=== PATIENT | male | born 1950 | race Caucasian/White ===

== ENCOUNTER → 2016-05-23 | Outpatient (CLI) | payer BC | LOC: MW.CHFP 11:14 | PROVIDERS: ATTEND Family Medicine | DX: Z01.818 Encounter for other preprocedural examination (principal); E11.9 Type 2 diabetes mellitus without complications; I10 Essential (primary) hypertension; M95.0 Acquired deformity of nose | CPT/HCPCS: 36415; 85025; 93005 ==

== ENCOUNTER 2016-05-31 07:22 | Day surgery (SDC) | payer BC ==
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
[~2016-05-31 07:22] MED LIST: Lactated Ringers 1,000 ML IV SCH
--- NOTE | 2016-05-31 07:57 | PCM.PREANE ---
Preanesthetic Assessment - Anesthesia/Transfusion/Family Hx Anesthesia History: No Prior Anesthesia Transfusion History: No Prior Transfusion(s) - Physical Assessment Height: 1.85 m Weight: 129.727 kg - Allergies Allergies/Adverse Reactions: Allergies Allergy/AdvReac Type Severity Reaction Status Date / Time No Known Allergies Allergy Verified 08/18/13 08:09 PreAnesthesia Questionnaire HEENT History: Reports: Other (see below) Other HEENT History: wears glasses, top denture Cardiovascular History: Reports: High cholesterol, Hypertension Musculoskeletal History: Reports: Osteoarthritis Endocrine/Metabolic History: Reports: Diabetes, type II, Obesity/BMI 30+ - Past Surgical History Head Surgeries/Procedures: Reports: None - SUBSTANCE USE Smoking Status *Q: Former Smoker (quit smoking 22 years ago) Tobacco Use Within Last Twelve Months: No Recreational Drug Use History: No - HOME MEDS Home Medications: Home Meds Lisinopril 20 mg PO DAILY 05/29/16 [History] Rosuvastatin [Crestor] 20 mg PO DAILY 05/29/16 [History] metFORMIN HCl [Metformin HCl] 500 mg PO DAILY 05/29/16 [History] - CURRENT (IN HOUSE) MEDS Current Meds: Current Medications Lactated Ringer's (Ringers, Lactated) 1,000 mls @ 100 mls/hr IV ASDIRECTED [facility] Preanesthetic Assessment - ANESTHESIA/TRANSFUSION/FAMILY HX Anesthesia/Transfusion History: Prior Anesthesia Type of Anesthesia Reaction: Denies: Allergy, Anesthesia Awareness, Excessive Somnolence, Excessive Nausea/Vomiting, Excessive Itching, Excessive Shivering, Malignant Hyperthermia, Malignant Hyperthermia, Family History, Pseudocholinesterase Deficiency, Pseudocholinesterase Deficiency, Family History of, Urinary Retention, Unknown, Other (see below) Family History of Anesthesia Reaction: No Other Intubation History Comment: no previous surgeries - REVIEW OF SYSTEMS Constitutional: Reports: no symptoms 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 Respiratory: Reports: no symptoms Cardiovascular: Reports: no symptoms GI: Reports: no symptoms Other: Reports: None - PHYSICAL ASSESSMENT Height: 1.85 m Weight: 129.727 kg ASA Class: 3 Mental Status: Alert & Oriented x3 Airway Class: Mallampati = 2 Dentition: Reports: Dentures (upper) Thyro-Mental Finger Breadths: 2 Mouth Opening Finger Breadths: 3 ROM/Head Extension: Limited/Partial Respiratory Status: lungs clear to auscultation bilaterally Cardiovascular Status: regular rate & rhythm, normal S1, S2, no murmur, blood pressure WNL - ALLERGIES Allergies/Adverse Reactions: Allergies Allergy/AdvReac Type Severity Reaction Status Date / Time No Known Allergies Allergy Verified 08/18/13 08:09 - BLOOD Blood Available: No - ANESTHESIA PLAN Preop Beta Renita: No Anesthesia Type Planned: General Anesthesia - ACKNOWLEDGEMENTS Pt an Appropriate Candidate for the Planned Anesthesia: Yes Alternatives and Risks of Anesthesia Discussed w Pt/Guardian: Yes Pt/Guardian Understands and Agrees with Anesthesia Plan: Yes
--- NOTE | 2016-05-31 08:01 | PCM.HPR ---
H & P Addendum review - H & P Addendum Review Date of Original H & P: 05/24/16 Date Reviewed: 05/31/16 Time Reviewed: 08:00 Patient was examined: No Changes (Has had a pre op clearance and formal H&P last week by his PCP; one ENT changes)
[2016-05-31] MEDS ORDERED: Dextrose 5% in Water 500 ML IV SCH (08:15)
[2016-05-31] MEDS ORDERED: Lidocaine 2% 5 ML SDV ONE (08:46)
[2016-05-31] MEDS ORDERED: Propofol 200 MG/20 ML SDV ONE ×2 (08:46→09:59)
[2016-05-31] MEDS ORDERED: Midazolam 1 MG/ML 2 ML SDV ONE (08:46)
[2016-05-31] MEDS ORDERED: fentaNYL 250 MCG/5 ML SDV ONE (08:47)
[2016-05-31] MEDS ORDERED: Ondansetron 4 MG/2 ML SDV ONE (08:48)
[2016-05-31] MEDS ORDERED: Rocuronium 10 MG/ML 10 ML Syringe ONE (08:48)
[2016-05-31] MEDS ORDERED: Neostigmine Methylsulfate 1 MG/ML 5 ML Syringe IV ONE (08:51)
[2016-05-31] MEDS ORDERED: Oxymetazoline 0.05% Nasal Spray 15 ML Bottle ONE (09:26)
[2016-05-31] MEDS ORDERED: Labetalol 5 MG/ML 5 ML Syringe ONE (09:27)
[2016-05-31] MEDS ORDERED: Phenylephrine 1% 10 MG/ML SDV ONE (09:39)
[2016-05-31] MEDS ORDERED: Phenylephrine/Normal Saline 100 MCG/ML 10 ML Syringe ONE (09:39)
[2016-05-31] MEDS ORDERED: Lidocaine 2% with EPINEPHrine 1:100,000 20 ML MDV ONE (09:54)
[2016-05-31] MEDS ORDERED: fentaNYL 100 MCG/2 ML SDV IVPUSH PRN (10:41)
[2016-05-31] MEDS ORDERED: Acetaminophen 325 MG Tab PO PRN (11:26)
[2016-05-31] MEDS ORDERED: Ibuprofen 400 MG Tab PO PRN (11:26)
[2016-05-31] MEDS ORDERED: traMADol 50 MG Tab PO PRN (11:27)
[2016-05-31 14:33] VITALS: BP 136/79
== END 2016-05-31 13:28 | disposition home or self-care (01) ==
LOC: MW.SDS 07:22
PROVIDERS: ATTEND Otolaryngology
DX: J34.2 Deviated nasal septum (principal); J34.89 Other specified disorders of nose and nasal sinuses; I10 Essential (primary) hypertension; E78.00 Pure hypercholesterolemia, unspecified; E53.8 Deficiency of other specified B group vitamins; Z79.899 Other long term (current) drug therapy; E11.9 Type 2 diabetes mellitus without complications; Z79.84 Long term (current) use of oral hypoglycemic drugs; Z87.891 Personal history of nicotine dependence
CPT/HCPCS: 30520; 82962; A9270; J2250; J2370; J2405; J3010; J7060; J7120; 00160; J2704

== ENCOUNTER → 2016-06-12 | Outpatient (CLI) | payer BC ==
[2016-06-12 08:58] LABS: CHLORIDE,CL 109 mmol/L (98-110); SODIUM,NA 143 mmol/L (136-146)
== END | disposition home or self-care (01) ==
LOC: MW.CHRC 08:00
PROVIDERS: ATTEND Family Medicine
DX: I10 Essential (primary) hypertension (principal); E78.00 Pure hypercholesterolemia, unspecified; E11.9 Type 2 diabetes mellitus without complications
CPT/HCPCS: 36415; 80053; 80061; 82044; 83036

== ENCOUNTER 2017-07-15 08:50 | Emergency (ER) | payer MEDICARE, BC ==
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
[2017-07-15 10:39] VITALS: BP 166/88
--- NOTE | 2017-07-16 15:18 | CR ---
EXAM DATE: 07/15/17 PATIENT'S AGE: 67 Patient: SCAR MIRELES Facility: [place], [place] Site . Site : 1950 Study: XRay Knee Right [id number]/29/2018 9:49:48 AM Ordering Physician: Doctor Ross Final Report: INDICATION: Knee pain. TECHNIQUE: Three views right knee. COMPARISON: None FINDINGS: No acute fracture. No dislocation. Mild chondrocalcinosis noted in the lateral compartment. Medial and lateral compartment joint space height is preserved. There is mild patellofemoral joint degenerative change. Superior pole patellar enthesophyte noted. No significant suprapatellar joint effusion. IMPRESSION: No acute osseous abnormality. Dictated by Barrett Monsivais MD @ 07/15/2017 10:07:43 AM Dictated by: Barrett Monsivais MD @ 07/15/2017 10:07:51 (Electronic Signature) Report Signed by Proxy. VIKRAM
== END 2017-07-15 10:43 | disposition home or self-care (01) ==
LOC: MW.ED 08:50
DX: M25.561 Pain in right knee (principal); E78.00 Pure hypercholesterolemia, unspecified; I10 Essential (primary) hypertension; E11.9 Type 2 diabetes mellitus without complications; Z79.899 Other long term (current) drug therapy; Z79.84 Long term (current) use of oral hypoglycemic drugs; Z87.891 Personal history of nicotine dependence
CPT/HCPCS: 36415; 73562-26-RT; 73562-RT; 84550; 85025; 86140; 99283

== ENCOUNTER 2017-08-29 08:13 | Day surgery (SDC) | payer MEDICARE, OTHER ==
[~2017-08-29 08:13] MED LIST changes: +Acetaminophen/HYDROcodone 325-5 MG Tab PO PRN; +Lidocaine 1% 20 ML MDV ONE; +Midazolam 1 MG/ML 2 ML SDV ONE; +Ondansetron 4 MG/2 ML SDV ONE; +Propofol 200 MG/20 ML SDV ONE; +ceFAZolin 2 GM in Premix Bag 1 BAG IV SCH; +fentaNYL 250 MCG/5 ML SDV ONE
[2017-08-29] MEDS ORDERED: ceFAZolin/Dextrose,Iso-Osmotic 2 GM/50 ML Duplex Bag IV ONE ×2 (08:33→09:54)
--- NOTE | 2017-08-29 08:47 | PCM.PREANE ---
Preanesthetic Assessment - Anesthesia/Transfusion/Family Hx Anesthesia History: Prior Anesthesia Without Reaction Family History of Anesthesia Reaction: No Transfusion History: No Prior Transfusion(s) - Review of Systems General: No Symptoms Pulmonary: No Symptoms Cardiovascular: No Symptoms Gastrointestinal: No Symptoms Neurological: No Symptoms Other: Reports: None - Physical Assessment NPO Status Date: 08/28/17 Height: 1.85 m Weight: 105.687 kg ASA Class: 2 Mental Status: Alert & Oriented x3 Airway Class: Mallampati = 1 Dentition: Reports: Dentures (upper) ROM/Head Extension: Full Lungs: Clear to Auscultation, Normal Respiratory Effort Cardiovascular: Regular Rate, Regular Rhythm - Lab Values: Laboratory Last Values POC Glucose 129 mg/dL (60-110) H 08/29/17 08:33 - Allergies Allergies/Adverse Reactions: Allergies Allergy/AdvReac Type Severity Reaction Status Date / Time No Known Allergies Allergy Verified 08/24/17 10:56 - Acknowledgements Anesthesia Type Planned: General Anesthesia Pt an Appropriate Candidate for the Planned Anesthesia: Yes Alternatives and Risks of Anesthesia Discussed w Pt/Guardian: Yes Pt/Guardian Understands and Agrees with Anesthesia Plan: Yes Additional Comments: PMH: htn, DM2, hld PreAnesthesia Questionnaire HEENT History: Reports: Other (See Below) Other HEENT History: wears glasses and has upper denture Cardiovascular History: Reports: High Cholesterol, Hypertension Musculoskeletal History: Reports: Osteoarthritis Endocrine/Metabolic History: Reports: Diabetes, Type II - Past Surgical History Head Surgeries/Procedures: Reports: None HEENT Surgical History: Reports: Naso-Sinus Surgery Other HEENT Surgeries/Procedures: Septoplasty - SUBSTANCE USE Smoking Status *Q: Former Smoker Tobacco Use Within Last Twelve Months: No Recreational Drug Use History: No - HOME MEDS Home Medications: Home Meds Lisinopril 20 mg PO DAILY 05/29/16 [History] Rosuvastatin [Crestor] 20 mg PO DAILY 05/29/16 [History] metFORMIN HCl [Metformin HCl] 500 mg PO DAILY 05/29/16 [History] Cyanocobalamin (Vitamin B12) [Vitamin B12] 1,000 mcg PO DAILY 07/15/17 [History] Ubidecarenone [Co Q-10] 100 mg PO DAILY 07/15/17 [History] Diclofenac Sodium [Voltaren] 75 mg PO BID 08/24/17 [History] - CURRENT (IN HOUSE) MEDS Current Meds: Current Medications Hydrocodone Bitart/Acetaminophen ([place] 325-5 Mg) 1 - 2 tab PO Q4H PRN PRN Reason: Pain Cefazolin Sodium/Dextrose 2 gm (/ Premix) 50 mls @ 100 mls/hr IV ONCALL GONZALO Lactated Ringer's (Ringers, Lactated) 1,000 mls @ 100 mls/hr IV ASDIRECTED GONZALO Discontinued Medications Cefazolin Sodium/Dextrose (Ancef) Confirm Administered Dose 2 gm IV .STK-MED ONE Stop: 08/29/17 08:34 Fentanyl (Sublimaze) Confirm Administered Dose 250 mcg .ROUTE .STK-MED ONE Stop: 08/29/17 07:13 Lidocaine HCl (Xylocaine-Mpf 1%) Confirm Administered Dose 5 mls @ as directed .ROUTE .STK-MED ONE Stop: 08/29/17 07:21 Lidocaine HCl (Xylocaine 1%) Confirm Administered Dose 20 ml .ROUTE .STK-MED ONE Stop: 08/29/17 07:50 Midazolam HCl (Versed 1 Mg/Ml) Confirm Administered Dose 2 mg .ROUTE .STK-MED ONE Stop: 08/29/17 07:12 Ondansetron HCl (Zofran) Confirm Administered Dose 4 mg .ROUTE .STK-MED ONE Stop: 08/29/17 07:21 Propofol (Diprivan 20 Ml) Confirm Administered Dose 200 mg .ROUTE .STK-MED ONE Stop: 08/29/17 07:12
[2017-08-29] MEDS ORDERED: Midazolam 1 MG/ML 2 ML SDV ONE (09:47)
[2017-08-29] MEDS ORDERED: fentaNYL 100 MCG/2 ML SDV IVPUSH PRN (10:11)
--- NOTE | 2017-08-29 10:35 | PCM.OPNOTE ---
- General Post-Op/Procedure Note Date of Surgery/Procedure: 08/29/17 Operative Procedure(s): Right knee arthroscopy with PMM/PLM Post-Op Diagnosis: DJD R knee, R knee med/lat menisectomy Anesthesia Technique: General LMA Primary Surgeon: Latesha Pantoja Anesthesia Provider: Toshia PRIETO in mLs: 5 Condition: Good Free Text/Narrative:: tt=15 min #[id number]
[2017-08-29 12:16] VITALS: BP 166/79
--- NOTE | 2017-08-29 13:49 | OR ---
SURGEON: Latesha Pantoja MD DATE OF PROCEDURE: 08/29/2017 PREOPERATIVE DIAGNOSIS: Right knee medial and lateral meniscus tear. POSTOPERATIVE DIAGNOSES: 1. Right knee medial and lateral meniscus tear. 2. Degenerative joint disease, right knee. PROCEDURE: Right knee arthroscopy with partial medial and lateral meniscectomy. CONTACT PRINTER DRY FILM: Toshia Prado PA-C ANESTHESIA: General. ESTIMATED BLOOD LOSS: 5 mL. TOURNIQUET TIME: 15 minutes. COMPLICATIONS: None. DVT PROPHYLAXIS: Not indicated. IMPLANTS USED: None. BRIEF HISTORY: Chris is a 67-year-old male, who has had complaint of progressive right knee pain. He had failed conservative treatment. Due to his lack of response to conservative treatment, I did recommend surgical intervention. The risks and goals of procedure were discussed with the patient and were documented preoperatively. He agreed to proceed. DESCRIPTION OF PROCEDURE: The patient was properly identified and brought to the operating room. He was transferred from the OR cart and placed on the operating table in supine position. General anesthesia was administered. After adequate anesthesia was obtained, a well-padded tourniquet was applied to the right lower extremity. The right lower extremity was then prepped in standard fashion using ChloraPrep solution. It was then sterilely draped. A time-out was performed to ensure correct site and procedure. Preoperative antibiotics were given. The surgical site had been marked preoperatively. An Esmarch was used to exsanguinate the right lower extremity and the tourniquet was inflated to 250 mmHg. A lateral portal arthrotomy was established. Blunt trocar and cannula were introduced into the suprapatellar pouch. Camera, inflow, and outflow were assembled. Suprapatellar pouch showed no evidence of synovitis. The patellofemoral joint was visualized. Minor degenerative changes consistent with grade 2 chondromalacia were noted. There was a portion of the fat pad, which appeared to be causing some impingement. I then extended down the lateral and medial gutter. No loose bodies were identified. I then entered the medial compartment. A medial portal arthrotomy was established. A blunt probe was inserted. He was found to have a degenerative tear along the posterior lateral aspect of the medial meniscus. This was probed and found to be unstable. Using a combination of biters and shaver, this was resected back to a stable remnant. There was a horizontal split along the posterior horn. Both the superior and inferior portions were probed and were found to be stable and I elected to leave this intact. The joint surfaces were inspected. The medial femoral condyle showed evidence of diffuse grade 3 chondromalacia along the weightbearing portion of the knee. Diffuse grade 2 to grade 3 chondromalacia was noted along the medial tibial plateau. I then entered the notch. Both the ACL and PCL were visualized and probed and found to be intact. I then entered the lateral compartment. Degenerative tearing along the lateral aspect of the lateral meniscus was noted. Crystal deposition was also noted within the meniscus. Again, using a combination of biters and shaver, the meniscus tear was resected back to a stable remnant. It was again probed and found to be stable. Diffuse grade 2 chondromalacia was noted along the lateral femoral condyle as well as the lateral tibial plateau. I then re-entered the patellofemoral joint. A shaver was used to resect a portion of the fat pad that appeared to be causing some impingement. No further impingement was noted. The instruments were then removed from the knee. The portal sites were closed with 3-0 nylon. 1% Lidocaine was injected along the portal tracts. Xeroform gauze was placed over the wound and a bulky dressing was applied. The tourniquet was then deflated. He was awakened from his anesthetic and transferred back to the operating room cart. He was brought to recovery room in stable condition. All needle and sponge counts were correct. MARY / LORENA /[id number]
== END 2017-08-29 11:45 | disposition home or self-care (01) ==
LOC: MW.SDS 08:13
PROVIDERS: ATTEND Orthopaedic Surgery
DX: M23.221 Derangement of posterior horn of medial meniscus due to old tear or injury, right knee (principal); M23.200 Derangement of unspecified lateral meniscus due to old tear or injury, right knee; M25.861 Other specified joint disorders, right knee; M94.28 Chondromalacia, other site; M17.11 Unilateral primary osteoarthritis, right knee; I10 Essential (primary) hypertension; E11.9 Type 2 diabetes mellitus without complications; E78.00 Pure hypercholesterolemia, unspecified; Z87.891 Personal history of nicotine dependence; Z79.899 Other long term (current) drug therapy; Z79.84 Long term (current) use of oral hypoglycemic drugs
CPT/HCPCS: 29880; 82962; A9270; J0690; J2250; J2405; J3010; J7120; 01400; 88304; J2704

== ENCOUNTER 2023-08-13 16:25 | Emergency (ER) | payer MEDICARE, OTHER ==
[2023-08-13] MEDS: Diphtheria,Pertussis(Acell),Tetanus Vaccine 0.5 ML Syringe IM ONE (18:10)
[2023-08-13] MEDS: Octyl 2-Cyanoacrylate 1 g/1 mL 1 APPLIC PEN TOP ONE (18:10)
[2023-08-13] MEDS: Lidocaine 4% 1 each Patch TOP STA (20:33)
[2023-08-14 02:46] VITALS: BP 150/90; PULSE 61
== END 2023-08-14 02:45 | disposition home or self-care (01) ==
LOC: MW.ED 16:25
DX: S02.2XXA Fracture of nasal bones, initial encounter for closed fracture (principal); S09.90XA Unspecified injury of head, initial encounter; E78.00 Pure hypercholesterolemia, unspecified; I10 Essential (primary) hypertension; E11.9 Type 2 diabetes mellitus without complications; Z75.8 Other problems related to medical facilities and other health care; Z79.899 Other long term (current) drug therapy; Z79.84 Long term (current) use of oral hypoglycemic drugs; Z23 Encounter for immunization
CPT/HCPCS: 12011; 70450; 72125; 90471; 90715; 99283; A9270

== ENCOUNTER 2023-08-22 08:59 | Emergency (ER) | payer OTHER ==
[2023-08-22 09:35] LABS: BASOPHILS ABSOLUTE AUTO 0.05 K/uL (0.00-0.20); BASOPHILS PERCENT AUTO 0.8 % (0.0-1.0); EOSINOPHILS ABSOLUTE AUTO 0.06 K/uL (0.00-0.45); HEMATOCRIT 41.3 % (42.0-52.0); HEMOGLOBIN 14.6 g/dL (14.0-18.0); IMMATURE GRAN ABSOLUTE AUTO 0.02 K/uL (0.00-0.05); IMMATURE GRAN PERCENT AUTO 0.3 % (0.0-0.4); LYMPHOCYTES ABSOLUTE AUTO 1.47 K/uL (1.00-4.80); MEAN CORPUSCULAR HEMOGLOBIN 31.4 pg (28.0-32.0); MEAN CORPUSCULAR HGB CONC 35.4 g/dL (32.0-36.0); MEAN CORPUSCULAR VOLUME 88.8 fL (83.0-99.0); MEAN PLATELET VOLUME 9.3 fL (9.4-12.4); MONOCYTES ABSOLUTE AUTO 0.75 K/uL (0.00-0.80); MONOCYTES PERCENT AUTO 12.2 % (0.0-8.0); NEUTROPHILS ABSOLUTE AUTO 3.78 K/uL (1.80-7.70); NEUTROPHILS PERCENT AUTO 61.7 % (41.0-71.0); PLATELET COUNT,PLT 255 K/uL (150-400); RED BLOOD CELL COUNT 4.65 M/uL (4.52-5.90); WHITE BLOOD CELL COUNT,WBC 6.13 K/uL (3.9-11.3)
[2023-08-22 10:07] LABS: CALCIUM 9.2 mg/dL (8.5-10.1); CARBON DIOXIDE,CO2 26.8 mmol/L (21.0-32.0); CREATININE 0.8 mg/dL (0.8-1.3); EST CRCL DRUG DOSING (CG) 92.96 mL/min; POTASSIUM,K 3.9 mmol/L (3.5-5.1)
[2023-08-22 11:19] VITALS: BP 156/82; PULSE 72
== END 2023-08-22 11:17 | disposition home or self-care (01) ==
LOC: MW.ED 08:59
DX: I10 Essential (primary) hypertension (principal); E78.00 Pure hypercholesterolemia, unspecified; E11.9 Type 2 diabetes mellitus without complications; Z79.899 Other long term (current) drug therapy; Z79.84 Long term (current) use of oral hypoglycemic drugs; Z75.8 Other problems related to medical facilities and other health care
CPT/HCPCS: 36415; 80048; 84484; 85025; 93005; 93010; 99282; 99283